=== PATIENT | male | born 1965 | race African-American/Black ===

== ENCOUNTER 2019-08-25 20:42 | Emergency (ER) | payer SELFPAY ==
[2019-08-25] MEDS ORDERED: IBUPROFEN 400 MG TAB ONE (22:02)
[2019-08-25] MEDS ORDERED: ACETAMINOPHEN 500 MG TAB ONE (22:02)
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
[2019-08-25 23:51] VITALS: TEMP 98.1
[2019-08-25 23:52] VITALS: BP 157/91; O2SAT 99
== END 2019-08-25 23:28 | disposition home or self-care (01) ==
LOC: ER 20:42
DX: S16.1XXA Strain of muscle, fascia and tendon at neck level, initial encounter (principal); V43.62XA Car passenger injured in collision with other type car in traffic accident, initial encounter; Y93.89 Activity, other specified; Y92.410 Unspecified street and highway as the place of occurrence of the external cause; M54.5 Low back pain
CPT/HCPCS: 72040; 72100; 99284

== ENCOUNTER 2022-08-13 21:59 | Emergency (ER) | payer BC ==
[2022-08-13] MEDS ORDERED: FENTANYL CITR 100 MCG/2 ML ONE (23:36)
[2022-08-14 00:03] LABS: Absolute Lymphocytes (CBC) 2.5 K/uL (0.7-4.9); Hematocrit 43.3 % (39.6-49.0); Lymphocytes % 41.6 % (15.3-44.8); MCV 88.9 fL (80-100); MPV 7.4 fL (7.6-11.3); RBC Red Blood Cell Count 4.87 M/uL (4.33-5.43)
[2022-08-14] MEDS ORDERED: NA CHLORIDE 0.9% 500 ML ONE (00:03)
[2022-08-14 00:08] LABS: Protime INR 0.95
[2022-08-14 00:16] LABS: Potassium 3.7 mmol/L (3.5-5.1)
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
[2022-08-14 03:00] VITALS: TEMP 97.2
[2022-08-14 03:05] VITALS: BP 152/93; O2SAT 96
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
== END 2022-08-14 02:31 | disposition home or self-care (01) ==
LOC: ER 21:59
DX: S50.11XA Contusion of right forearm, initial encounter (principal); M25.561 Pain in right knee; M25.512 Pain in left shoulder; M25.511 Pain in right shoulder; M54.9 Dorsalgia, unspecified; M54.2 Cervicalgia; Y04.8XXA Assault by other bodily force, initial encounter
CPT/HCPCS: 96361; 85025; 80048; 36415; 86900; 86850; 85610; 86901; 70450; 72125; 71260; 74177; 73090; 73562; 96374; 99284; Q9967; J3010; J7040